=== PATIENT | male | born 1950 | race Caucasian/White ===

== ENCOUNTER 2017-12-21 14:13 | Emergency (ER) | payer OTHER ==
[~2017-12-21] VITALS: Ht 170.2 cm; Wt 86.0 kg
[2017-12-21 15:16] LABS: BASOPHILS # (AUTO) 0.03 x10^3/uL (0-0.1); BASOPHILS % (AUTO) 0 % (0-1); EOSINOPHILS # (AUTO) 0.06 x10^3/uL (0-0.4); EOSINOPHILS % (AUTO) 1 % (1-7); LYMPHOCYTES # (AUTO) 2.03 x10^3/uL (1-3.4); LYMPHOCYTES % (AUTO) 28 % (22-44); MD NO; MEAN CORPUSCULAR HEMOGLOBIN 31.1 pg (27.5-34.5); MEAN CORPUSCULAR HGB CONC 34.2 g/dL (33.2-36.2); MEAN CORPUSCULAR VOLUME 90.8 fL (81-97); MEAN PLATELET VOLUME 7.5 fL (7.4-10.4); MONOCYTES # (AUTO) 0.54 x10^3/uL (0.2-0.8); MONOCYTES % (AUTO) 8 % (2-9); NEUTROPHILS # (AUTO) 4.65 x10^3/uL (1.8-6.8); NEUTROPHILS % (AUTO) 64 % (42-75); PLATELET COUNT 245 x10^3/uL (130-400); RED BLOOD COUNT 5.02 x10^6/uL (4.38-5.82); RED CELL DISTRIBUTION WIDTH 14.3 % (9.4-14.8)
[2017-12-21 15:19] LABS: ALANINE AMINOTRANSFERASE 50 U/L (12-78); ALBUMIN 4.3 g/dL (3.4-5.0); ANION GAP 8 mmol/L (5-15); CALCIUM 9.4 mg/dL (8.5-10.1); CHLORIDE 104 mmol/L (98-107); CREATININE 1.34 mg/dL (0.7-1.3)
[2017-12-21 15:22] LABS: ALKALINE PHOSPHATASE 94 U/L (45-117); BILIRUBIN,TOTAL 0.7 mg/dL (0.2-1.0); TOTAL PROTEIN 7.9 g/dL (6.4-8.2)
[2017-12-21 16:05] VITALS: BP 119/68
== END 2017-12-21 16:28 | disposition home or self-care (01) ==
LOC: ED 15:30
DX: K58.0 Irritable bowel syndrome with diarrhea (principal); M19.90 Unspecified osteoarthritis, unspecified site; G89.29 Other chronic pain
CPT/HCPCS: 36415; 74021; 80053; 85025; 99285

== ENCOUNTER 2020-09-06 07:31 | Emergency (ER) | payer MEDICARE, OTHER ==
[~2020-09-06] VITALS: Ht 170.2 cm; Wt 75.0 kg
--- NOTE | 2020-09-06 07:42 | NUR ---
dalia. report received from [facility]. pt c/o bilateral chronic lower back pain. denies trauma/glf. pt's aox4. resps even and unlabored. bp/spo2 monitors in place. call light within reach. pa at bedside for assessment at this time.
[2020-09-06] MEDS ORDERED: KETOROLAC 30 MG/1 ML ONE (07:46)
[2020-09-06] MEDS ORDERED: CYCLOBENZAPRINE 10 MG TABLET ONE (07:46)
[2020-09-06] MEDS ORDERED: ACETAMINOPHEN 500 MG TABLET ONE (07:46)
--- NOTE | 2020-09-06 07:48 | NUR ---
pt in imaging at this time
[2020-09-06] MEDS ORDERED: KETOROLAC 30 MG/1 ML IM ONE (08:00)
[2020-09-06] MEDS ORDERED: ACETAMINOPHEN 500 MG TABLET PO ONE (08:00)
[2020-09-06] MEDS ORDERED: CYCLOBENZAPRINE 10 MG TABLET PO ONE (08:00)
--- NOTE | 2020-09-06 08:17 | NUR ---
pt medicated per emar. pt tolerated well.
[2020-09-06 08:44] VITALS: BP 119/68
--- NOTE | 2020-09-06 08:44 | NUR ---
pa at bedside to explain all results at this time.
--- NOTE | 2020-09-06 09:15 | NUR ---
Patient given discharge instructions and they have confirmed that they understand the instructions. pt wheeled to dc. taxi voucher given at tn.
== END 2020-09-06 09:16 | disposition home or self-care (01) ==
LOC: ED 08:48
DX: S39.012A Strain of muscle, fascia and tendon of lower back, initial encounter (principal); M47.816 Spondylosis without myelopathy or radiculopathy, lumbar region; G89.29 Other chronic pain; X58.XXXA Exposure to other specified factors, initial encounter; Y93.9 Activity, unspecified; Y92.89 Other specified places as the place of occurrence of the external cause; Y99.8 Other external cause status
CPT/HCPCS: 72110; 96372; 99283; J1885; 99284

== ENCOUNTER 2020-09-10 06:46 | Emergency (ER) | payer MEDICARE ==
[~2020-09-10] VITALS: Ht 170.2 cm; Wt 67.3 kg
--- NOTE | 2020-09-10 06:58 | NUR ---
REPORT RECEIVED, CARE ASSUMED. DR JENSEN AT BEDSIDE TO EVAL PT.
[2020-09-10 07:28] LABS: BASOPHILS % (AUTO) 1 % (0-1); EOSINOPHILS % (AUTO) 2 % (1-7); LYMPHOCYTES % (AUTO) 18 % (22-44); MEAN CORPUSCULAR HEMOGLOBIN 28.4 pg (27.5-34.5); MEAN CORPUSCULAR HGB CONC 32.8 g/dL (33.2-36.2); MEAN PLATELET VOLUME 6.9 fL (7.4-10.4); MONOCYTES % (AUTO) 8 % (2-9); NEUTROPHILS % (AUTO) 71 % (42-75); PLATELET COUNT 426 x10^3/uL (130-400)
[2020-09-10 07:30] LABS: MD NO
[2020-09-10 07:33] LABS: ANION GAP 6 mmol/L (5-15); CALCIUM 9.5 mg/dL (8.5-10.1); CHLORIDE 98 mmol/L (98-107); CREATININE 0.97 mg/dL (0.7-1.3)
--- NOTE | 2020-09-10 07:36 | NUR ---
Pt is concerned that he has lost his ID, he thinks it may of been left on the ambulance. Rodger at [facility] contacted [id number] and will check with the ambulance when they are finished with a patient and call back and let us know.
--- NOTE | 2020-09-10 07:51 | NUR ---
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
[2020-09-10] MEDS ORDERED: CLON0.5T20 PO (07:58)
--- NOTE | 2020-09-10 08:54 | NUR ---
PT TO AND FROM [facility] VIA W/C. UNABLE TO HAVE BM "I MAY NEED SOME ASSISTANCE" ADMITTING AND KHLOE RODRIGUES AT BEDSIDE.
--- NOTE | 2020-09-10 09:50 | NUR ---
Spoke with Pastor in PT and she said that they have the order and someone should be down shortly.
--- NOTE | 2020-09-10 10:11 | NUR ---
PT & OT provided history, they are here to evaluate pt. In room now.
--- NOTE | 2020-09-10 11:08 | NUR ---
Pt brother Kaden called and updated.
--- NOTE | 2020-09-10 12:02 | NUR ---
SW contacted for update, states they are waiting for acceptance to a SNF as stated in their note.
--- NOTE | 2020-09-10 12:08 | NUR ---
Pt updated on care of plan.
--- NOTE | 2020-09-10 12:56 | NUR ---
Pt up to bathroom with staff assistance.
[2020-09-10] MEDS ORDERED: OXYcodone IR 5MG TABLET PO PRN (14:00)
--- NOTE | 2020-09-10 14:36 | NUR ---
Pt VSS, pt aware of pending transfer. pain 510.
--- NOTE | 2020-09-10 14:57 | NUR ---
LILIA Frazier update that [facility] is time for pt transfer. Pt updated.
[2020-09-10] MEDS ORDERED: ZOLP12.56 PO (15:11)
[2020-09-10] MEDS ORDERED: OXYC20TA2 PO (15:11)
[2020-09-10] MEDS ORDERED: [UNRECOGNIZED DRUG - OTHER] TP (15:13)
--- NOTE | 2020-09-10 15:13 | NUR ---
SPOKE WITH [facility]ARM[facility], VERIFIED PT RX.
[2020-09-10] MEDS ORDERED: SENN8.6T98 PO (15:37)
[2020-09-10] MEDS ORDERED: LINA290C PO (15:37)
[2020-09-10] MEDS ORDERED: ATOR10TA9 PO (15:37)
[2020-09-10] MEDS ORDERED: PANT40TA3 PO (15:37)
[2020-09-10] MEDS ORDERED: POLY17PO5 PO (15:37)
[2020-09-10] MEDS ORDERED: ZOLP10TA PO (15:37)
--- NOTE | 2020-09-10 18:19 | NUR ---
[facility] HERE TO TRANSPORT PT TO [facility]. PT ABLE TO TRANSFER W/C TO W/C. NO IV TO DC. REVIEWED DC INSTRUCTIONS WITH PT.
[2020-09-10 18:20] VITALS: BP 144/86
== END 2020-09-10 18:23 | disposition short-term general hospital (02) ==
LOC: ED 07:00 → EDIP 07:51 → UNDOADMIN 07:51 → ED 18:17
DX: M48.00 Spinal stenosis, site unspecified (principal); G89.29 Other chronic pain; M54.5 Low back pain
CPT/HCPCS: 36415; 80048; 85025; 99285